=== PATIENT | female | born 1935 | race Caucasian/White ===

== ENCOUNTER → 2016-03-21 | Outpatient (CLI) | payer MEDICARE ==
[~2016-03-21] MED LIST: NORCO 325 MG-51 TAB PO
== END ==
LOC: MC.RAD 08:35
DX: Z12.31 Encounter for screening mammogram for malignant neoplasm of breast (principal); N63 Unspecified lump in breast; Z80.3 Family history of malignant neoplasm of breast

== ENCOUNTER → 2016-03-27 | Outpatient (CLI) | payer MEDICARE | LOC: MC.RAD 08:58 | DX: D48.62 Neoplasm of uncertain behavior of left breast (principal); Z80.3 Family history of malignant neoplasm of breast ==

== ENCOUNTER → 2016-04-03 | Outpatient (CLI) | payer MEDICARE | LOC: MC.RAD 08:16 | DX: D05.12 Intraductal carcinoma in situ of left breast (principal) ==

== ENCOUNTER 2016-04-18 06:52 | Day surgery (SDC) | payer MEDICARE ==
[2016-04-18] VITALS (7 sets, daily range): BP systolic 87–158; BP diastolic 47–60; PULSE 44–61; TEMP 97.1–98.8
[~2016-04-18] VITALS: Ht 162.6 cm; Wt 66.1 kg
[2016-04-18] MEDS ORDERED: NORCO 325 MG-51 TAB PO (10:50)
== END 2016-04-18 13:00 | disposition home or self-care (01) ==
LOC: SDCO 06:52
DX: D05.12 Intraductal carcinoma in situ of left breast (principal)
CPT/HCPCS: J0360; J2405; J2704; J3010; J7120

== ENCOUNTER → 2016-11-08 | Outpatient (CLI) | payer MEDICARE | LOC: MC.RAD 11-04 10:40 | DX: Z12.31 Encounter for screening mammogram for malignant neoplasm of breast (principal) ==

== ENCOUNTER → 2017-12-15 | Outpatient (CLI) | payer MEDICARE | LOC: MC.RAD 11:25 | DX: Z00.00 Encounter for general adult medical examination without abnormal findings (principal); Z12.31 Encounter for screening mammogram for malignant neoplasm of breast; Z98.890 Other specified postprocedural states; Z98.82 Breast implant status ==

== ENCOUNTER → 2019-03-05 | Outpatient (CLI) | payer MEDICARE | LOC: MC.RAD 09:54 | DX: Z12.31 Encounter for screening mammogram for malignant neoplasm of breast (principal); Z98.890 Other specified postprocedural states ==

== ENCOUNTER → 2020-03-06 | Outpatient (CLI) | payer MEDICARE | LOC: MC.RAD 09:07 | DX: Z12.31 Encounter for screening mammogram for malignant neoplasm of breast (principal) ==

== ENCOUNTER → 2021-03-28 | Outpatient (CLI) | payer MEDICARE | LOC: MC.RAD 09:10 | DX: Z12.31 Encounter for screening mammogram for malignant neoplasm of breast (principal) ==

== ENCOUNTER → 2023-04-24 | Outpatient (CLI) | payer MEDICARE | LOC: MC.RAD 08:56 | DX: Z12.31 Encounter for screening mammogram for malignant neoplasm of breast (principal); N64.89 Other specified disorders of breast ==

== ENCOUNTER → 2023-04-28 | Outpatient (CLI) | payer MEDICARE | LOC: MC.RAD 12:52 | DX: N64.89 Other specified disorders of breast (principal); Z90.12 Acquired absence of left breast and nipple; Z85.3 Personal history of malignant neoplasm of breast ==

== ENCOUNTER → 2023-04-30 | Outpatient (CLI) | payer MEDICARE | LOC: MC.RAD 06:51 | DX: N64.89 Other specified disorders of breast (principal) ==

== ENCOUNTER 2023-06-02 06:52 | Day surgery (SDC) | payer MEDICARE ==
[2023-06-02] VITALS (16 sets, daily range): BP systolic 99–145; BP diastolic 52–83; PULSE 51–60; TEMP 96.4
[~2023-06-02] VITALS: Ht 162.7 cm; Wt 56.1 kg
[2023-06-02] MEDS ORDERED: 1/2 NS 1,000 ML IV SCH ×2 (07:30→11:00)
[2023-06-02 07:49] LABS: HEMOGLOBIN 11.6 g/dl (12.5-16.0); MEAN CELL VOLUME 96 fl (80.0-100.0); MEAN CORPUSCULAR HEMOGLOBIN 33 pg (27-31); MEAN CORPUSCULAR HGB CONC 35 g/dl (33.0-37.0); MEAN PLATELET VOLUME 9.7 fl (7.4-10.4); PLATELET COUNT 185 K/mm3 (130-400); RED BLOOD COUNT 3.49 M/mm3 (4.10-5.30); REDCELL DISTRIBUTION WIDTH-CV 12.2 % (11.5-14.5)
[2023-06-02 07:51] LABS: HEMATOCRIT 33.5 % (37.0-47.0)
[2023-06-02 07:54] LABS: PROTHROMBIN TIME 11.4 SECONDS (9.7-12.8)
[2023-06-02 07:57] LABS: PARTIAL THROMBOPLASTIN TIME 36.4 SECONDS (26.0-37.0)
[2023-06-02 08:09] LABS: CREATININE, serum 1.36 mg/dL (0.57-1.11); POTASSIUM 3.8 mEq/L (3.5-4.5)
[2023-06-02] MEDS ORDERED: ASPIRIN 81M81 MG/TA2 PO (08:26)
[2023-06-02] MEDS ORDERED: LOTENSIN HCT 101 TAB PO (08:26)
[2023-06-02] MEDS ORDERED: TYLENOL 325MG325 MG PO (08:27)
[2023-06-02] MEDS ORDERED: MASON NATURAL1200 MG PO (08:27)
[2023-06-02] MEDS ORDERED: CALCIUM 600MG+D1 TAB PO (08:28)
[2023-06-02] MEDS ORDERED: MASON NATURAL600 MG PO (08:28)
[2023-06-02] MEDS ORDERED: EYE MULTIVITAM1 EAC1 PO (08:29)
[2023-06-02] MEDS ORDERED: SYNTHROID 0.0.025 MG PO (08:30)
[2023-06-02] MEDS ORDERED: TURMERIC500 MG PO (08:30)
[2023-06-02] MEDS ORDERED: Lidocaine PF 2% (20 MG/ML) 5 ML VIAL ONE (08:44)
--- NOTE | 2023-06-02 09:07 | NUR ---
Refer to [facility] report for procedural sedation and notes
--- NOTE | 2023-06-02 09:38 | NUR ---
Refer to [facility] Report for procedural sedation/notes
[2023-06-02] MEDS ORDERED: niCARdipine (Cath Lab) 100 MCG/ML 10 ML VIAL IA SCH (09:45)
[2023-06-02] MEDS ORDERED: Heparin 1,000 UNITS/ML 10 ML Multi-Dose VIAL IV SCH (09:46)
[2023-06-02] MEDS ORDERED: Iohexol 350 - 100 ML VIAL INCOR ONE (09:52)
[2023-06-02] MEDS ORDERED: fentaNYL 50 MCG/ML 2 ML VIAL IV SCH (09:54)
[2023-06-02] MEDS ORDERED: Midazolam 2 MG/2 ML VIAL IV SCH (09:55)
--- NOTE | 2023-06-02 10:15 | NUR ---
Pt back to [facility] - bedside handoff performed with NELY Ni. Vitals initiated and stable. Radial access site assessed and stable. Daughter at bedside, call light in reach
--- NOTE | 2023-06-02 11:40 | NUR ---
Pt's family calls out asking for assistance as pt has some bleeding from rt radial puncture site. Small oozing noticed under TR band. 1.5 of air added to TR band with cessation of oozing. Hand and wrist cleaned and chux pad added to cover pillow under arm to protect from blood that had leaked out from under TR band. Pt aware she should continue to not use rt arm and rest it on pillow. Family remains at bedside. Primary nurse Raine notified.
--- NOTE | 2023-06-02 14:49 | NUR ---
All air removed fromband in 2-3 ml incriments.No bleeding observed at site.Right radial site wrapped in gauze and coban.
--- NOTE | 2023-06-02 15:10 | NUR ---
Discharge instructions given to pt.Pt verbalizes understanding.Pt escorted out via wheelchair byt his nurse.
== END 2023-06-02 17:54 ==
LOC: COL.CAR 06:52
PROVIDERS: Internal Medicine Cardiovascular Disease
DX: I25.10 Atherosclerotic heart disease of native coronary artery without angina pectoris (principal); I08.0 Rheumatic disorders of both mitral and aortic valves; E78.49 Other hyperlipidemia; N18.30 Chronic kidney disease, stage 3 unspecified; I12.9 Hypertensive chronic kidney disease with stage 1 through stage 4 chronic kidney disease, or unspecified chronic kidney disease; Z85.3 Personal history of malignant neoplasm of breast; Z79.82 Long term (current) use of aspirin; Z79.899 Other long term (current) drug therapy
CPT/HCPCS: C1769; J1644; J2250; J2404; J2704; J3010; Q9967